=== PATIENT | male | born 1955 | race Caucasian/White ===

== ENCOUNTER 2020-12-17 17:27 | Observation (INO) | payer OTHER ==
[~2020-12-17] VITALS: Ht 177.8 cm; Wt 70.8 kg
[~2020-12-17 17:27] MED LIST: GABA100C PO; INSU100V11 SQ-INSULIN; INSU300I SQ; LISI2.5T PO; METO25TA35 PO
[2020-12-17 18:10] LABS: BASOPHILS % (AUTO) 1 % (0-1); EOSINOPHILS % (AUTO) 0 % (1-7); LYMPHOCYTES % (AUTO) 10 % (22-44); MEAN CORPUSCULAR HEMOGLOBIN 28.2 pg (27.5-34.5); MEAN CORPUSCULAR HGB CONC 33.5 g/dL (33.2-36.2); MEAN PLATELET VOLUME 7.4 fL (7.4-10.4); MONOCYTES % (AUTO) 7 % (2-9); NEUTROPHILS % (AUTO) 82 % (42-75); PLATELET COUNT 334 x10^3/uL (130-400); RED BLOOD COUNT 4.62 x10^6/uL (4.38-5.82)
[2020-12-17 18:13] LABS: MD NO
[2020-12-17] MEDS ORDERED: REGULAR INSULIN 100 UNITS in SODIUM CHLORIDE 0.9% 99 ML IV PRN (18:30)
[2020-12-17 18:45] LABS: ALBUMIN 3.7 g/dL (3.4-5.0); ANION GAP 10 mmol/L (5-15); CALCIUM 8.8 mg/dL (8.5-10.1); CHLORIDE 109 mmol/L (98-107)
--- NOTE | 2020-12-17 18:50 | NUR ---
REPORT FROM LYRIC NEWMAN INSULIN AND D10 WELL PROTONIX INFUSIONS STOPPED
[2020-12-17] MEDS ORDERED: LISINOPRIL 5 MG TABLET PO ONE (19:00)
[2020-12-17] MEDS: SODIUM CHLORIDE 0.9% 1,000 ML IV SCH (19:14)
[2020-12-17] MEDS ORDERED: DOCUSATE 100 MG CAPSULE PO PRN (19:30)
[2020-12-17] MEDS ORDERED: ACETAMINOPHEN 325 MG TABLET PO PRN (19:30)
[2020-12-17] MEDS ORDERED: LABETALOL 5MG/ML, 20ML IVPush PRN (19:30)
[2020-12-17] MEDS ORDERED: INSU100I34 SQ (19:51)
--- NOTE | 2020-12-17 19:52 | NUR ---
MED REC COMPLETED. NO LONGER ON LISINOPRIL/METOPROLOL AND LONG ACTING INSULIN CHANGED TO BASAGLAR LONG ACTING INSULIN. WHICH HE TAKES IN THE MORNING-LAST TIME HE TOOK WAS MOST LIKELY YESTERDAY MORNING. DR. JADE CALLED TO UPDATED (ALREADY HAS ORDERS PLACED FOR LISINOPRIL, ETC)
[2020-12-17 20:10] VITALS: BP 131/67
[2020-12-17 20:25] LABS: % IRON SATURATION 13 % (20-55); IRON LEVEL 32 mcg/dL (65-175); TOTAL IRON BINDING CAPACITY 249 mcg/dL (250-450)
[2020-12-17] MEDS: OMEPRAZOLE 20 MG CAPSULE.DR PO SCH (20:55)
[2020-12-17] MEDS: INSULIN LISPRO 100 UNITS/ML, PEN SQ-INSULIN SCH (21:00)
[2020-12-17 21:25] VITALS: BP 131/67
[2020-12-18 00:03] VITALS: BP 127/67
[2020-12-18] MEDS: SODIUM CHLORIDE 0.9% 1,000 ML IV SCH (02:10)
[2020-12-18 05:03] LABS: MICROSCOPIC AUTO
[2020-12-18 05:29] LABS: BASOPHILS % (AUTO) 1 % (0-1); EOSINOPHILS % (AUTO) 3 % (1-7); LYMPHOCYTES % (AUTO) 18 % (22-44); MEAN CORPUSCULAR HEMOGLOBIN 28.8 pg (27.5-34.5); MEAN CORPUSCULAR HGB CONC 34.1 g/dL (33.2-36.2); MEAN PLATELET VOLUME 7.9 fL (7.4-10.4); MONOCYTES % (AUTO) 6 % (2-9); NEUTROPHILS % (AUTO) 73 % (42-75); PLATELET COUNT 277 x10^3/uL (130-400); RED BLOOD COUNT 4.29 x10^6/uL (4.38-5.82)
[2020-12-18 05:38] LABS: ANION GAP 8 mmol/L (5-15); CALCIUM 8.3 mg/dL (8.5-10.1); CHLORIDE 112 mmol/L (98-107); CREATININE 0.91 mg/dL (0.7-1.3)
[2020-12-18 06:00] LABS: MD NO
[2020-12-18] MEDS ORDERED: METOPROLOL TARTRATE 25 MG TAB PO SCH (06:00)
[2020-12-18] MEDS: OMEPRAZOLE 20 MG CAPSULE.DR PO SCH (06:14)
[2020-12-18 07:18] VITALS: BP 144/74
[2020-12-18] MEDS: INSULIN LISPRO 100 UNITS/ML, PEN SQ-INSULIN SCH ×2 (08:10→11:55)
[2020-12-18] MEDS ORDERED: INSULIN GLARGINE HUM REC ANLOG SQ SCH (09:00)
[2020-12-18] MEDS ORDERED: INSULIN GLARGINE 100 UNITS/ML, PEN SQ-INSULIN SCH (09:00)
[2020-12-18] MEDS ORDERED: GABAPENTIN 100 MG CAPSULE PO SCH (09:00)
[2020-12-18 14:42] VITALS: BP 102/60
== END 2020-12-18 15:18 | disposition home or self-care (01) ==
LOC: ED 18:49 → INTOOBSV 18:55 → EDIP 18:55 → ED 18:58 → 4NW 20:00 → DCLOUNGE 12-18 15:08
PROVIDERS: ADMIT Student in an Organized Health Care Education/Training Program; ATTEND Hospitalist
DX: E11.649 Type 2 diabetes mellitus with hypoglycemia without coma (principal); E11.10 Type 2 diabetes mellitus with ketoacidosis without coma; K92.0 Hematemesis; I10 Essential (primary) hypertension; D72.829 Elevated white blood cell count, unspecified; K21.9 Gastro-esophageal reflux disease without esophagitis; D64.9 Anemia, unspecified; E87.5 Hyperkalemia; F17.200 Nicotine dependence, unspecified, uncomplicated; Z79.4 Long term (current) use of insulin; Z79.899 Other long term (current) drug therapy
CPT/HCPCS: 36415; 80048; 81001; 82040; 82962; 83036; 83540; 83550; 85025; 87086; 93005; 96360; 96361; 99284; G0378; J1815; J7030; 99285